=== PATIENT | female | born 1965 | race African-American/Black ===

== ENCOUNTER → 2016-06-27 | Outpatient (CLI) | payer MEDICAID | END | disposition home or self-care (01) | LOC: MAMMO 09:51 | PROVIDERS: ATTEND Internal Medicine Nephrology | DX: Z12.31 Encounter for screening mammogram for malignant neoplasm of breast (principal) | CPT/HCPCS: G0202 ==

== ENCOUNTER 2016-07-10 09:38 | Emergency (ER) | payer MEDICAID, OTHER ==
[~2016-07-10] VITALS: Ht 175.3 cm; Wt 100.0 kg
[2016-07-10 09:59] VITALS: BP 162/84
[2016-07-10] MEDS ORDERED: KETOROLAC 60MG/2ML VIAL IM ONE (11:00)
== END 2016-07-10 12:12 | disposition home or self-care (01) ==
LOC: ER 10:23
DX: M25.522 Pain in left elbow (principal); Z98.890 Other specified postprocedural states
CPT/HCPCS: 73080; 73090; 73130; 96372; 99284; J1885; Z7610